=== PATIENT | male | born 1960 | race Caucasian/White ===

== ENCOUNTER 2018-01-14 08:19 | Inpatient (IN) | payer OTHER ==
[2018-01-14] VITALS (10 sets, daily range): BP systolic 124–164; BP diastolic 64–92
[~2018-01-14] VITALS: Ht 180.3 cm; Wt 100.0 kg
[2018-01-14] MEDS ORDERED: nitroGLYCERIN-Tridil 50MG/D5W 250 ML IV ONE ×2 (08:30→13:32)
[2018-01-14] MEDS ORDERED: morphine 4 MG/ML inj SYRINge IV ONE ×2 (08:35→09:00)
[2018-01-14] MEDS: nitroGLYCERIN-Tridil 50MG/D5W 250 ML IV PRN ×2 (08:47→20:53)
[2018-01-14 08:52] LABS: BASOPHILS % (AUTO) 0.2 % (0-1); EOSINOPHILS # (AUTO) 0.1 X10'3 (0-0.9); HEMATOCRIT 44.3 % (42.0-52.0); HEMOGLOBIN 15.5 g/dl (14.0-17.9); LYMPHOCYTES # (AUTO) 1.7 X10'3 (1.1-4.8); LYMPHOCYTES % (AUTO) 18.7 % (21-51); MEAN CORPUSCULAR HEMOGLOBIN 31.1 PG (27.0-31.0); MEAN CORPUSCULAR VOLUME 88.9 FL (78-98); MONOCYTES # (AUTO) 0.6 X10'3 (0-0.9); MONOCYTES % (AUTO) 6.9 % (2-12); NEUTROPHILS # (AUTO) 6.6 X10'3 (1.8-7.7); NEUTROPHILS % (AUTO) 73.2 % (42-75); PLATELET COUNT 154 X10'3 (140-440); RED BLOOD COUNT 4.98 X10'6 (4.70-6.10); RED CELL DISTRIBUTION WIDTH 12.8 % (11.5-14.5); WHITE BLOOD COUNT 9.1 X10'3 (4.5-11.0)
[2018-01-14] MEDS ORDERED: morphine 4 MG/ML inj SYRINge ONE (08:56)
[2018-01-14] MEDS ORDERED: argatroban in NS 50mg/50ml 50 ML IV ONE (09:00)
[2018-01-14 09:05] LABS: ALANINE AMINOTRANSFERASE 22 U/L (12-78); ALBUMIN 3.6 G/DL (3.4-5.0); ALBUMIN/GLOBULIN RATIO 1.1 (1.1-1.5); ALKALINE PHOSPHATASE 145 IU/L (46-116); ANION GAP 10 (8-16); ASPARTATE AMINO TRANSFERASE 21 U/L (10-37); BILIRUBIN,TOTAL 0.6 MG/DL (0.1-1.0); BLOOD UREA NITROGEN 19 MG/DL (7-18); BUN/CREATININE RATIO 14.6 (5.4-32.0); CHLORIDE 102 MMOL/L (99-107); GLUCOSE 447 MG/DL (70-104); POTASSIUM 4.7 MMOL/L (3.5-5.1); SODIUM 135 MMOL/L (135-145); TOTAL PROTEIN 6.9 G/DL (6.4-8.2); eGFR 57 ML/MIN
[2018-01-14 09:13] LABS: MAGNESIUM 1.9 MG/DL (1.5-2.4)
[2018-01-14] MEDS ORDERED: HYDROmorphone 1 mg/ml syringe IV ONE (09:15)
[2018-01-14] MEDS ORDERED: hydrALAZINE 20mg/ml inj. IV ONE (09:15)
[2018-01-14] MEDS ORDERED: labetalol 20mg/4ml (5mg/ml) syringe IV ONE (09:35)
[2018-01-14] MEDS ORDERED: fentaNYL/PF 50MCG/1 ML 2ML syringe IV ONE (09:35)
[2018-01-14] MEDS: argatroban in NS 50mg/50ml 50 ML IV SCH ×4 (10:07→22:26)
[2018-01-14 10:25] LABS: PARTIAL THROMBOPLASTIN TIME 25 SECONDS (22-32); PROTHROMBIN TIME 10.2 SECONDS (9.0-12.0)
[2018-01-14] MEDS ORDERED: iohexol 350MG/ML 100ml bottle IV ONE ×3 (11:07→14:51)
[2018-01-14] MEDS: normal saline 1000ml 1,000 ML IV SCH ×2 (11:59→22:26)
[2018-01-14] MEDS ORDERED: magnesium hydroxide 30ml (MOM) UD suspension PO PRN (12:00)
[2018-01-14] MEDS ORDERED: HYDROcodone/acetaminophen 5mg/325mg tablet PO PRN (12:00)
[2018-01-14] MEDS ORDERED: potassium Cl 20 mEq SR tablet PO PRN ×2 (12:00)
[2018-01-14] MEDS ORDERED: magnesium 2GM in 50ml NS 50 ML IV PRN (12:00)
[2018-01-14] MEDS ORDERED: diphenhydrAMINE 50 mg/ml inj IV PRN (12:00)
[2018-01-14] MEDS ORDERED: acetaminophen 325mg tablet PO PRN ×2 (12:00)
[2018-01-14] MEDS ORDERED: mag hydrox/Alum hydrox/simeth 30ml oral suspension PO PRN (12:00)
[2018-01-14] MEDS ORDERED: magnesium Cl slow-release 64mg tablet PO PRN (12:00)
[2018-01-14] MEDS ORDERED: ondansetron/PF 4mg/2ml inj IV PRN (12:00)
[2018-01-14] MEDS ORDERED: magnesium 4gm in 100ml NS 100 ML IV PRN (12:00)
[2018-01-14] MEDS ORDERED: morphine 4 MG/ML inj SYRINge IV PRN (12:00)
[2018-01-14] MEDS ORDERED: potassium Cl 40MEQ/NS 500ml 500 ML IV PRN ×2 (12:00)
[2018-01-14] MEDS: K and/or MAG REPLACEMENT MC SCH (12:28)
[2018-01-14] MEDS ORDERED: tirofiban 5mg in NS 100mL 100 ML IV SCH (12:50)
[2018-01-14 13:02] LABS: CLARITY,URINE CLEAR (Clear); COLOR,URINE STRAW (Yellow); GLUCOSE, URINE >=1000 mg/dl (Neg); KETONES,URINE TRACE mg/dl (Neg); LEUKOCYTE ESTERASE ,URINE NEGATIVE (Neg); NITRITES, URINE NEGATIVE (Neg); OCCULT BLOOD,URINE TRACE-INTACT (Neg); PH,URINE 5.5 (4.8-8.0); PROTEIN,URINE TRACE mg/dl (Neg); UROBILINOGEN,URINE 0.2 E.U/dL (0.2-1.0)
[2018-01-14 13:12] LABS: UA COLLECTION TYPE CLN CATCH MIDSTREAM
[2018-01-14 13:13] LABS: WBC,URINE NONE SEEN /HPF (0-4)
[2018-01-14 13:14] LABS: BACTERIA,URINE NONE SEEN /HPF (Neg); MUCUS STRANDS NONE SEEN /LPF (Neg); RBC,URINE 0-2 /HPF (0-2); SQUAMOUS EPITHELIAL CELL,UR FEW /LPF (FEW)
[2018-01-14] MEDS ORDERED: fentaNYL/PF 50MCG/1 ML 2ML syringe ONE (13:32)
[2018-01-14] MEDS ORDERED: iohexol 350 MG/ML 50ML vial IV ONE ×4 (13:32→15:21)
[2018-01-14] MEDS ORDERED: midazolam 2 mg/2 ml injection ONE (13:32)
[2018-01-14] MEDS ORDERED: heparin 1,000 UNITS/NS 500ml 0 ML ONE (13:32)
[2018-01-14] MEDS ORDERED: heparin 1,000unit/ml 10ml vial 0 ML ONE (13:32)
[2018-01-14] MEDS ORDERED: insulin regular, human 10 units/0.1 ml syringe ONE (13:58)
[2018-01-14 14:20] LABS: HEMOGLOBIN A1C 10.3 % (4.5-6.2)
[2018-01-14] MEDS ORDERED: hydrocortisone sod succ/PF 100mg/2ml inj. ONE (15:03)
[2018-01-14] MEDS ORDERED: diphenhydrAMINE 50 mg/ml inj ONE (15:03)
[2018-01-14] MEDS ORDERED: famotidine/PF 10 mg/ml inj IV ONE ×2 (15:11→15:15)
[2018-01-14] MEDS ORDERED: clopidogrel 300mg tablet ONE (15:55)
[2018-01-14] MEDS ORDERED: MESSAGE TO PHARMACY PO ONE (16:15)
[2018-01-14] MEDS ORDERED: glucagon, human recombinant 1mg kit SUBCUT PRN (16:15)
[2018-01-14] MEDS ORDERED: dextrose 50%-water 50ml dispensing syringe IV PRN ×2 (16:15)
[2018-01-14] MEDS ORDERED: dextrose ORAL solution 15 GM/59 ML bottle PO PRN ×2 (16:15)
[2018-01-14] MEDS ORDERED: aspirin 81mg tab.chew PO ONE (16:55)
[2018-01-14] MEDS ORDERED: OXAZEpam 15mg capsule PO PRN (17:05)
[2018-01-14] MEDS ORDERED: proCHLORperazine 10 MG/2 ml inj IV PRN (17:05)
[2018-01-14] MEDS: tirofiban 5mg in NS 100mL 100 ML IV SCH ×3 (17:15→23:29)
[2018-01-14] MEDS: HYDROcodone/acetaminophen 10/325mg tab PO PRN (17:21)
[2018-01-14] MEDS: cyclobenzaprine 10mg tablet PO PRN (18:52)
[2018-01-14] MEDS: carvedilol 6.25mg tablet PO SCH (20:50)
[2018-01-14] MEDS: docusate sod 100mg capsule PO SCH (20:50)
[2018-01-14] MEDS: insulin Lispro (HumaLOG) vial - multi-dose SQ SCH (20:57)
[2018-01-14] MEDS: insulin glargine (Lantus) pen - multi-dose SQ SCH (20:58)
[2018-01-15] VITALS (23 sets, daily range): BP systolic 106–160; BP diastolic 51–82
[2018-01-15] MEDS: argatroban in NS 50mg/50ml 50 ML IV SCH ×3 (02:09→08:14)
[2018-01-15 02:22] LABS: BASOPHILS % (AUTO) 0.4 % (0-1); EOSINOPHILS # (AUTO) 0.1 X10'3 (0-0.9); EOSINOPHILS % (AUTO) 1.3 % (0-6); HEMATOCRIT 40.3 % (42.0-52.0); HEMOGLOBIN 13.9 g/dl (14.0-17.9); LYMPHOCYTES # (AUTO) 2.2 X10'3 (1.1-4.8); LYMPHOCYTES % (AUTO) 20.9 % (21-51); MEAN CORPUSCULAR HEMOGLOBIN 31.3 PG (27.0-31.0); MEAN CORPUSCULAR HGB CONC 34.6 % (33.0-36.5); MEAN CORPUSCULAR VOLUME 90.5 FL (78-98); MEAN PLATELET VOLUME 10.1 FL (7.4-10.4); MONOCYTES # (AUTO) 0.5 X10'3 (0-0.9); MONOCYTES % (AUTO) 5.2 % (2-12); NEUTROPHILS # (AUTO) 7.6 X10'3 (1.8-7.7); NEUTROPHILS % (AUTO) 72.2 % (42-75); PLATELET COUNT 157 X10'3 (140-440); RED BLOOD COUNT 4.45 X10'6 (4.70-6.10); RED CELL DISTRIBUTION WIDTH 12.9 % (11.5-14.5); WHITE BLOOD COUNT 10.6 X10'3 (4.5-11.0)
[2018-01-15 02:39] LABS: ALANINE AMINOTRANSFERASE 25 U/L (12-78); ALBUMIN 3.1 G/DL (3.4-5.0); ALBUMIN/GLOBULIN RATIO 1.1 (1.1-1.5); ALKALINE PHOSPHATASE 107 IU/L (46-116); ANION GAP 9 (8-16); ASPARTATE AMINO TRANSFERASE 54 U/L (10-37); BILIRUBIN,TOTAL 0.6 MG/DL (0.1-1.0); BLOOD UREA NITROGEN 18 MG/DL (7-18); BUN/CREATININE RATIO 15.3 (5.4-32.0); CALCIUM 8.8 MG/DL (8.5-10.1); CHLORIDE 107 MMOL/L (99-107); CHOL/HDL RATIO 4.7 (0.00-4.99); CHOLESTEROL 121 MG/DL (0-200); CREATININE 1.18 MG/DL (0.60-1.10); GLUCOSE 279 MG/DL (70-104); HDL CHOLESTEROL 26 MG/DL (35-60); LDL CHOLESTEROL 61 MG/DL (50-100); MAGNESIUM 1.8 MG/DL (1.5-2.4); PHOSPHORUS 3.9 MG/DL (2.3-4.5); POTASSIUM 3.6 MMOL/L (3.5-5.1); SODIUM 141 MMOL/L (135-145); TOTAL CARBON DIOXIDE 24.8 MMOL/L (24-32); TRIGLYCERIDES 307 MG/DL (20-135); eGFR 63 ML/MIN
[2018-01-15] MEDS: HYDROcodone/acetaminophen 10/325mg tab PO PRN ×5 (04:35→23:53)
[2018-01-15] MEDS: tirofiban 5mg in NS 100mL 100 ML IV SCH ×2 (04:36→15:31)
[2018-01-15] MEDS ORDERED: midazolam 2 mg/2 ml injection ONE (07:29)
[2018-01-15] MEDS ORDERED: fentaNYL/PF 50MCG/1 ML 2ML syringe ONE (07:29)
[2018-01-15] MEDS ORDERED: nitroGLYCERIN-Tridil 50MG/D5W 250 ML IV ONE (07:29)
[2018-01-15] MEDS ORDERED: heparin 1,000 UNITS/NS 500ml 0 ML ONE (07:30)
[2018-01-15] MEDS ORDERED: heparin 1,000unit/ml 10ml vial 0 ML ONE (07:30)
[2018-01-15] MEDS ORDERED: iohexol 350 MG/1 ML 200ml bottle ONE (07:30)
[2018-01-15] MEDS: normal saline 1000ml 1,000 ML IV SCH ×2 (07:59→17:59)
[2018-01-15] MEDS ORDERED: clopidogrel 75mg tablet PO SCH (08:00)
[2018-01-15] MEDS: K and/or MAG REPLACEMENT MC SCH (08:00)
[2018-01-15] MEDS ORDERED: aspirin 81mg tablet.DR PO SCH (08:00)
[2018-01-15] MEDS ORDERED: methylPREDNISolone sod succ 125mg/2ml vial IV ONE (08:45)
[2018-01-15] MEDS ORDERED: diphenhydrAMINE 50 mg/ml inj IV ONE (08:45)
[2018-01-15] MEDS: losartan 50mg tablet PO SCH (09:08)
[2018-01-15] MEDS: docusate sod 100mg capsule PO SCH ×2 (09:08→19:41)
[2018-01-15] MEDS: carvedilol 6.25mg tablet PO SCH (09:09)
[2018-01-15] MEDS: atorvastatin 20mg tablet PO SCH (09:09)
[2018-01-15] MEDS ORDERED: famotidine/PF 10 mg/ml inj IV ONE (09:45)
[2018-01-15] MEDS ORDERED: tirofiban 5mg in NS 100mL 100 ML IV ONE (10:30)
[2018-01-15] MEDS ORDERED: diphenhydrAMINE 50 mg/ml inj ONE (10:54)
[2018-01-15] MEDS ORDERED: clopidogrel 75mg tablet ONE (11:32)
[2018-01-15] MEDS ORDERED: aspirin 325mg tablet PO ONE (12:25)
[2018-01-15] MEDS ORDERED: normal saline 1000ml 1,000 ML IV ONE (12:25)
[2018-01-15] MEDS ORDERED: acetaminophen 325mg tablet PO PRN (12:30)
[2018-01-15] MEDS ORDERED: hydrALAZINE 20mg/ml inj. IV PRN (12:30)
[2018-01-15] MEDS: insulin Lispro (HumaLOG) vial - multi-dose SQ SCH ×3 (14:36→22:02)
[2018-01-15] MEDS: morphine 4 MG/ML inj SYRINge IV PRN ×3 (14:49→23:54)
[2018-01-15] MEDS: cyclobenzaprine 10mg tablet PO PRN (19:40)
[2018-01-15] MEDS: carVEDilol 12.5mg tablet PO SCH (19:41)
[2018-01-15] MEDS: insulin glargine (Lantus) pen - multi-dose SQ SCH (22:03)
[2018-01-16] VITALS (15 sets, daily range): BP systolic 113–159; BP diastolic 51–96
[2018-01-16] MEDS: normal saline 1000ml 1,000 ML IV SCH ×2 (03:59→13:59)
[2018-01-16] MEDS: morphine 4 MG/ML inj SYRINge IV PRN ×3 (05:11→13:23)
[2018-01-16] MEDS: HYDROcodone/acetaminophen 10/325mg tab PO PRN ×3 (05:11→13:23)
[2018-01-16 05:51] LABS: BASOPHILS % (AUTO) 0.1 % (0-1); EOSINOPHILS % (AUTO) 0 % (0-6); HEMATOCRIT 38.3 % (42.0-52.0); HEMOGLOBIN 13.3 g/dl (14.0-17.9); LYMPHOCYTES # (AUTO) 1.6 X10'3 (1.1-4.8); LYMPHOCYTES % (AUTO) 17.8 % (21-51); MEAN CORPUSCULAR HEMOGLOBIN 31.1 PG (27.0-31.0); MEAN CORPUSCULAR HGB CONC 34.6 % (33.0-36.5); MEAN PLATELET VOLUME 10.6 FL (7.4-10.4); MONOCYTES # (AUTO) 0.5 X10'3 (0-0.9); MONOCYTES % (AUTO) 5.4 % (2-12); NEUTROPHILS # (AUTO) 6.9 X10'3 (1.8-7.7); NEUTROPHILS % (AUTO) 76.7 % (42-75); PLATELET COUNT 144 X10'3 (140-440); RED BLOOD COUNT 4.26 X10'6 (4.70-6.10); RED CELL DISTRIBUTION WIDTH 13.3 % (11.5-14.5); WHITE BLOOD COUNT 8.9 X10'3 (4.5-11.0)
[2018-01-16 06:33] LABS: ALANINE AMINOTRANSFERASE 19 U/L (12-78); ALKALINE PHOSPHATASE 99 IU/L (46-116); ANION GAP 10 (8-16); ASPARTATE AMINO TRANSFERASE 28 U/L (10-37); BILIRUBIN,TOTAL 0.4 MG/DL (0.1-1.0); BLOOD UREA NITROGEN 25 MG/DL (7-18); BUN/CREATININE RATIO 20.7 (5.4-32.0); CALCIUM 8.7 MG/DL (8.5-10.1); CHLORIDE 105 MMOL/L (99-107); CHOL/HDL RATIO 2.9 (0.00-4.99); CHOLESTEROL 115 MG/DL (0-200); CREATININE 1.21 MG/DL (0.60-1.10); GLUCOSE 281 MG/DL (70-104); HDL CHOLESTEROL 39 MG/DL (35-60); LDL CHOLESTEROL 59 MG/DL (50-100); MAGNESIUM 1.9 MG/DL (1.5-2.4); PHOSPHORUS 3.5 MG/DL (2.3-4.5); SODIUM 138 MMOL/L (135-145); TOTAL CARBON DIOXIDE 22.7 MMOL/L (24-32); TOTAL PROTEIN 6.1 G/DL (6.4-8.2); TRIGLYCERIDES 119 MG/DL (20-135); eGFR 61 ML/MIN
[2018-01-16] MEDS: K and/or MAG REPLACEMENT MC SCH (06:46)
[2018-01-16 07:16] LABS: LARGE PLATELETS FEW; PLATELET ESTIMATE NORMAL; TOTAL CELLS COUNTED 100
[2018-01-16] MEDS: atorvastatin 20mg tablet PO SCH (07:29)
[2018-01-16] MEDS: losartan 50mg tablet PO SCH (07:29)
[2018-01-16] MEDS: carVEDilol 12.5mg tablet PO SCH (07:29)
[2018-01-16] MEDS: docusate sod 100mg capsule PO SCH (07:29)
[2018-01-16] MEDS ORDERED: clopidogrel 75mg tablet PO SCH (08:00)
[2018-01-16] MEDS ORDERED: aspirin 325mg tablet PO SCH (08:30)
[2018-01-16] MEDS: insulin Lispro (HumaLOG) vial - multi-dose SQ SCH ×2 (08:32→13:19)
[2018-01-16] MEDS ORDERED: nitroGLYCERIN 0.4mg SUBLingual tab SL PRN (10:20)
[2018-01-16] MEDS ORDERED: ASPI81TA52 PO (10:22)
[2018-01-16] MEDS ORDERED: ATOR80TA PO (10:22)
[2018-01-16] MEDS ORDERED: CLOP75TA15 PO (10:22)
[2018-01-16] MEDS ORDERED: CARV25TA PO (10:22)
[2018-01-16] MEDS ORDERED: LOSA50TA3 PO (10:22)
== END 2018-01-16 15:39 | disposition home or self-care (01) | DRG 246 ==
LOC: ER 08:20 → ED HOLD 11:59 → ICU 2S 16:22
PROVIDERS: ADMIT Family Medicine; ATTEND Family Medicine
PROC: 4A023N7 Measurement of Cardiac Sampling and Pressure, Left Heart, Percutaneous Approach (ICD-10-PCS; principal; 2018-01-14)
PROC: 027034Z Dilation of Coronary Artery, One Artery with Drug-eluting Intraluminal Device, Percutaneous Approach (ICD-10-PCS; 2018-01-14)
PROC: 02703ZZ Dilation of Coronary Artery, One Artery, Percutaneous Approach (ICD-10-PCS; 2018-01-14)
PROC: B2111ZZ Fluoroscopy of Multiple Coronary Arteries using Low Osmolar Contrast (ICD-10-PCS; 2018-01-14)
PROC: B2151ZZ Fluoroscopy of Left Heart using Low Osmolar Contrast (ICD-10-PCS; 2018-01-14)
PROC: B2131ZZ Fluoroscopy of Multiple Coronary Artery Bypass Grafts using Low Osmolar Contrast (ICD-10-PCS; 2018-01-14)
PROC: B32T1ZZ Computerized Tomography (CT Scan) of Left Pulmonary Artery using Low Osmolar Contrast (ICD-10-PCS; 2018-01-14)
PROC: B3201ZZ Computerized Tomography (CT Scan) of Thoracic Aorta using Low Osmolar Contrast (ICD-10-PCS; 2018-01-14)
PROC: B32S1ZZ Computerized Tomography (CT Scan) of Right Pulmonary Artery using Low Osmolar Contrast (ICD-10-PCS; 2018-01-14)
DX: T82.855A Stenosis of coronary artery stent, initial encounter (principal); I21.4 Non-ST elevation (NSTEMI) myocardial infarction; N17.9 Acute kidney failure, unspecified; I47.1 Supraventricular tachycardia; E11.22 Type 2 diabetes mellitus with diabetic chronic kidney disease; E11.3593 Type 2 diabetes mellitus with proliferative diabetic retinopathy without macular edema, bilateral; E11.42 Type 2 diabetes mellitus with diabetic polyneuropathy; E78.5 Hyperlipidemia, unspecified; I25.10 Atherosclerotic heart disease of native coronary artery without angina pectoris; I25.5 Ischemic cardiomyopathy; N18.9 Chronic kidney disease, unspecified; Z86.79 Personal history of other diseases of the circulatory system; Z95.1 Presence of aortocoronary bypass graft; Z79.01 Long term (current) use of anticoagulants; Z79.899 Other long term (current) drug therapy; Z88.8 Allergy status to other drugs, medicaments and biological substances; Z91.041 Radiographic dye allergy status; Z79.82 Long term (current) use of aspirin; Z95.810 Presence of automatic (implantable) cardiac defibrillator; Z79.4 Long term (current) use of insulin; Z79.84 Long term (current) use of oral hypoglycemic drugs
CPT/HCPCS: 93306; 93459; 96365; 96375; 96376; 99285; C9600; C9604; 36415; 71045; 71275; 80053; 80061; 81001; 82948; 83036; 83735; 83880; 84100; 84484; 85025; 85347; 85610; 85730; 87070; 93005; 99152; 99153; A4620; A6213; A6257; A6449; C1725; C1769; C1874; J0360; J0883; J1200; J1644; J1720; J1815; J2250; J2270; J2405; J2930; J3010; J3246; J3490; J7030; Q9967